=== PATIENT | female | born 1985 | race American Indian/Alaskan Native ===

== ENCOUNTER 2018-04-18 22:25 | Emergency (ER) | payer SELFPAY ==
[2018-04-18] MEDS ORDERED: Sodium Chloride 0.9% 1,000 ML IV ONE (23:23)
[2018-04-19 00:12] LABS: EOS # 0.3 K/uL (0.0-0.7); HEMOGLOBIN 12.1 g/dL (11.0-16.0); LYMPH # 1.5 K/uL (1.0-4.3); MEAN PLATELET VOLUME 8.6 fL (7.2-11.7); WHITE BLOOD COUNT 4.7 K/uL (4.8-10.8)
[2018-04-19 00:14] LABS: BASO % 0.6 % (0.0-2.0); EOS % 5.9 % (0.0-4.0); LYMPH % 31.6 % (20.0-40.0); MEAN CELL VOLUME 79.3 fL (81.0-99.0); MEAN CORPUSCULAR HEMOGLOBIN 27.6 pg (27.0-31.0); MEAN CORPUSCULAR HGB CONC 34.8 g/dL (33.0-37.0); MONO # 0.5 K/uL (0.0-0.8); MONO % 9.8 % (0.0-10.0); NEUT # 2.5 K/uL (1.8-7.0); NEUT % 52.1 % (50.0-75.0); NRBC % 0.1 % (0.0-2.0); RBC 4.4 Mil/uL (3.80-5.20); RED CELL DISTRIBUTION WIDTH 14.7 % (11.5-14.5)
[2018-04-19] MEDS ORDERED: Sodium Chloride 0.9% 1,000 ML ONE (00:16)
[2018-04-19 00:21] LABS: URINE BACTERIA RARE (<OCC); URINE BILIRUBIN NEGATIVE (NEGATIVE); URINE BLOOD NEGATIVE (NEGATIVE); URINE CLARITY Hazy (Clear); URINE COLOR Yellow (YELLOW); URINE GLUCOSE (UA) NORMAL (Normal); URINE LEUKOCYTE ESTERASE NEG Leu/uL (Negative); URINE PROTEIN NEGATIVE (NEGATIVE); URINE UROBILINOGEN NORMAL mg/dL (0.2-1.0)
[2018-04-19 00:22] LABS: HCG,QUALITATIVE URINE NEGATIVE (NEGATIVE)
[2018-04-19 00:23] LABS: BLOOD UREA NITROGEN 11 mg/dL (7-17); CALCIUM 8.8 mg/dl (8.6-10.4); GFR AFRICAN-AMERICAN > 60; GFR NON-AFRICAN AMERICAN > 60
[2018-04-19 00:24] LABS: ALB/GLOB RATIO 1.1 (1.0-2.1); ALBUMIN 3.8 g/dL (3.5-5.0); ALT/SGPT 16 U/L (9-52); AST/SGOT 19 U/L (14-36)
[2018-04-19 00:36] LABS: CK-MB 0.52 ng/mL (0.0-3.38)
[2018-04-19 00:39] LABS: BARBITURATES, UR NEGATIVE (NEGATIVE); BENZODIAZEPINES, UR NEGATIVE (NEGATIVE); OPIATES, UR NEGATIVE (NEGATIVE); PHENCYCLIDINE, UR NEGATIVE (NEGATIVE)
[2018-04-19] MEDS ORDERED: Potassium Chloride 20 mEq ER Tab PO STA (01:03)
[2018-04-19 01:10] VITALS: BP 115/75; PULSE 51; RESP 16; TEMP 97.6; O2SAT 99
[2018-04-19] MEDS ORDERED: Potassium Chloride 20 mEq ER Tab PO ONE (01:21)
--- NOTE | 2018-04-19 01:25 | C.PDOC ---
History Of Present Illness 32 year old female presents to the ER with a sudden onset of chest pain that began 2 hours [employer]. Patient states the pain is constant and describes it as a pressure-like pain. Patient reports having associated SOB, generalized weakness , and tingling around her mouth, hands, and feet. As per triage nurse, patient was hyperventilating during triage. She denies headache, dizziness, vomiting, diarrhea, dysuria, facial droop, slurred speech, extremity weakness, gait changes, visual changes, fever, neck pain/stiffness, or Hx of anxiety. Time Seen by Provider: 04/18/18 22:56 Chief Complaint (Nursing): Chest Pain History Per: Patient History/Exam Limitations: no limitations Onset/Duration Of Symptoms: Hrs Current Symptoms Are (Timing): Still Present Severity: Moderate Quality: Pressure Associated Symptoms: Other (SOB, generalized weakness, "tingling") Modifying Factors: None Exacerbating Factors: None Alleviating Factors: None Recent travel outside of the [place]: No Past Medical History Reviewed: Historical Data, Nursing Documentation, Vital Signs Vital Signs: Last Vital Signs Temp 97.6 F 04/19/18 01:09 Pulse 51 L 04/19/18 01:09 Resp 16 04/19/18 01:09 BP 115/75 04/19/18 01:09 Pulse Ox 99 04/19/18 01:46 - Medical History PMH: No Chronic Diseases Surgical History: No Surg Hx Family History: States: No Known Family Hx - Social History Hx Tobacco Use: No Hx Alcohol Use: Yes Hx Substance Use: No - Immunization History Hx Tetanus Toxoid Vaccination: No Hx Influenza Vaccination: No Hx Pneumococcal Vaccination: No Review Of Systems Constitutional: Positive for: Weakness. Negative for: Fever, Chills Cardiovascular: Positive for: Chest Pain. Negative for: Palpitations Respiratory: Positive for: Shortness of Breath. Negative for: Cough Gastrointestinal: Negative for: Nausea, Vomiting, Abdominal Pain, Diarrhea Genitourinary: Negative for: Dysuria Neurological: Positive for: Other (Tingling). Negative for: Weakness, Numbness , Change in Speech, Confusion, Seizures, Altered Mental Status, Headache, Dizziness Physical Exam - Physical Exam Appears: Well, Non-toxic, Other (Flat affect, speaking in complete sentences) Skin: Normal Color, Warm, Dry Head: Atraumatic, Normacephalic Eye(s): bilateral: Normal Inspection Oral Mucosa: Moist Neck: Supple, Other (no meningismus ) Cardiovascular: Rhythm Regular Respiratory: Normal Breath Sounds, No Rales, No Rhonchi, No Wheezing Gastrointestinal/Abdominal: Normal Exam, Bowel Sounds, Soft, No Tenderness Back: No CVA Tenderness Extremity: Normal ROM, No Pedal Edema, No Calf Tenderness Pulses: Left Dorsalis Pedis: Normal, Right Dorsalis Pedis: Normal Neurological/Psych: Oriented x3, Normal Speech, Normal Cognition, Normal Cranial Nerves, No Cerebellar Signs, Normal Motor, Normal Sensation Gait: Steady ED Course And Treatment - Laboratory Results Result Diagrams: 04/18/18 23:59 04/18/18 23:59 ECG: Interpreted By Me, Viewed By Me ECG Rhythm: Sinus Rhythm ECG Interpretation: Normal Interpretation Of ECG: normal axis, No acute ST/T wave changes Rate From EC (bpm) O2 Sat by Pulse Oximetry: 99 (Room air) Pulse Ox Interpretation: Normal - Radiology CXR: Interpreted by Me, Viewed By Me CXR Interpretation: Yes: No Acute Disease. No: Infiltrates Progress Note: Blood work, CXR, EKG, urinalysis, Upreg, UDS ordered and reviewed. Patient given IV NS bolus, PO Kdur due to mild hypokalemia. Reevaluation Time: 01:45 Reassessment Condition: Improved (On reassessment, patient is resting comfortably and symptoms have resolved. Blood work, EKG, CXR, UA, Upreg, UDS unremarkable. Symptoms likely due to anxiety/panic attack. Patient instructed to follow up with PMD/clinic in 1-2 days, and she understands she should return to ED if symptoms worsen.) Disposition Counseled Patient/Family Regarding: Studies Performed, Diagnosis, Need For Followup - Disposition Referrals: [facility] [Outside] Disposition: HOME/ ROUTINE Disposition Time: 01:45 Condition: STABLE Additional Instructions: FOLLOW UP WITH YOUR DOCTOR IN 1-2 DAYS RETURN TO ER IF YOU HAVE ANY CONCERNING SYMPTOMS Forms: [facility] (Ukrainian), General Discharge Instructions Print Language: GERMAN - POA Present On Arrival: None - Clinical Impression Clinical Impression: Evaluation by medical service required, Hyperventilation, Chest pain, non- cardiac - Scribe Statement The provider has reviewed the documentation as recorded by the Scribvivian Farah All medical record entries made by the Scribe were at my direction and personally dictated by me. I have reviewed the chart and agree that the record accurately reflects my personal performance of the history, physical exam, medical decision making, and the department course for this patient. I have also personally directed, reviewed, and agree with the discharge instructions and disposition.
--- NOTE | 2018-04-19 09:01 | RAD ---
Chest x-ray single frontal view History: Shortness of breath. Comparison: None available. Findings: No focal infiltrate or effusion. Heart size within normal limits. Impression: No focal infiltrate or effusion.
--- NOTE | 2018-04-21 22:58 | CARD ---
APPROVED REPORT Date of service: 04/18/2018 EKG Measurement Heart [id number] <Conclusion> Normal sinus rhythm Normal ECG
== END 2018-04-19 01:56 | disposition home or self-care (01) ==
LOC: C.ER 22:25
DX: R07.89 Other chest pain (principal); R06.4 Hyperventilation; E87.6 Hypokalemia
CPT/HCPCS: 71045; 80053; 81001; 82550; 82553; 84443; 84484; 84703; 85025; 85378; 93005; 99284; G0480; J7030